=== PATIENT | male | born 1965 | race Caucasian/White ===

== ENCOUNTER 2017-12-01 09:28 | Inpatient (IN) | payer MEDICAID ==
[~2017-12-01 09:28] MED LIST: cefOXitin 2 GM Vial ONE
[2017-12-01] MEDS ORDERED: Celecoxib 200 MG Cap PO ONE (09:30)
[2017-12-01] MEDS ORDERED: Acetaminophen 500 MG Tab PO ONE (09:30)
[2017-12-01] MEDS ORDERED: Gabapentin 300 MG Cap PO ONE (09:30)
[2017-12-01] MEDS ORDERED: Scopolamine 1.5 MG Transdermal Patch TOP SCH (09:30)
[2017-12-01] MEDS ORDERED: Dextrose 5%-Lactated Ringers 1,000 ML IV SCH (10:30)
[2017-12-01] MEDS ORDERED: fentaNYL 250 MCG/5 ML SDV ONE (11:23)
[2017-12-01] MEDS ORDERED: Neostigmine Methylsulfate 1 MG/ML 5 ML Syringe ONE (11:24)
[2017-12-01] MEDS ORDERED: Succinylcholine 200 MG/10 ML MDV ONE (11:24)
[2017-12-01] MEDS ORDERED: Glycopyrrolate 0.2 MG/ML 5 ML MDV ONE (11:24)
[2017-12-01] MEDS ORDERED: Ondansetron 4 MG/2 ML SDV ONE (11:24)
[2017-12-01] MEDS ORDERED: Dexamethasone 4 MG/ML SDV ONE (11:24)
[2017-12-01] MEDS ORDERED: Rocuronium 50 MG/5 ML Vial ONE ×2 (11:24→14:36)
[2017-12-01] MEDS ORDERED: Propofol 200 MG/20 ML SDV ONE (11:24)
[2017-12-01] MEDS ORDERED: Lidocaine 2% 100 MG/5 ML Syringe IVPUSH ONE (12:00)
[2017-12-01] MEDS ORDERED: Ropivacaine 60 ML, Dexamethasone 8 MG, EPINEPHrine 0.4 MG, Sodium Chloride 0.9% 17.6 ML NERVRT SCH ×4 (12:00)
[2017-12-01] MEDS ORDERED: Ketamine 500 MG/5 ML MDV IV SCH (12:00)
[2017-12-01] MEDS ORDERED: cefOXitin 2 GM in Sodium Chloride 0.9% 50 ML IV ONE (12:30)
[2017-12-01] MEDS: Lidocaine 0.4%/D5W 2 GM/500 ML BAG IV SCH (16:00)
[2017-12-01] MEDS ORDERED: Labetalol 20 MG/4 ML Syringe ONE (16:38)
[2017-12-01] MEDS ORDERED: Labetalol 20 MG/4 ML Syringe IV PRN (16:38)
[2017-12-01] MEDS ORDERED: HYDROmorphone 0.5 MG/0.5 ML Syringe ONE ×2 (16:43→16:54)
[2017-12-01] MEDS ORDERED: HYDROmorphone 0.5 MG/0.5 ML Syringe IVPUSH ONE (16:45)
[2017-12-01] MEDS ORDERED: fentaNYL 100 MCG/2 ML SDV ONE (16:54)
[2017-12-01] MEDS ORDERED: fentaNYL 100 MCG/2 ML SDV IV ONE (16:55)
[2017-12-01] MEDS: Dextrose 5%-Lactated Ringers 1,000 ML IV SCH (17:00)
[2017-12-01] MEDS ORDERED: MVI, Adult with Vitamin K 10 ML, Thiamine 200 MG, Chromium/Copper/Mang/Selen/Zn 1 ML in... IV SCH ×8 (18:00)
[2017-12-01] MEDS ORDERED: Pantoprazole 40 MG Vial IVPUSH SCH (18:00)
[2017-12-01] MEDS ORDERED: Albuterol/Ipratropium 3.0-0.5 MG/3 ML Neb Soln INH PRN (18:00)
[2017-12-01] MEDS ORDERED: Ondansetron 4 MG/2 ML SDV IVPUSH PRN (18:00)
[2017-12-01] MEDS ORDERED: Metoclopramide 10 MG/2 ML SDV IVPUSH PRN (18:00)
[2017-12-01] MEDS ORDERED: hydrOXYzine HCl 100 MG/2 ML SDV IM PRN (18:00)
[2017-12-01] MEDS ORDERED: Labetalol 20 MG/4 ML Syringe IVPUSH PRN (18:00)
[2017-12-01] MEDS ORDERED: Insulin Aspart 100 Units/ML 3 ML Pen SUBCUT PRN (18:00)
[2017-12-01] MEDS ORDERED: diphenhydrAMINE 50 MG/ML SDV IVPUSH PRN (18:00)
[2017-12-01] MEDS: Heparin Sodium 5,000 Units/ML Vial SUBCUT SCH (18:04)
[2017-12-01] MEDS: Acetaminophen Soln 650 MG/20.3 ML UD Cup PO SCH (20:12)
[2017-12-01] MEDS: Gabapentin 250 MG/5 ML Solution ML 470 ML Bottle PO SCH (20:14)
[2017-12-01] MEDS: cefOXitin 2 GM in Sodium Chloride 0.9% 50 ML IV SCH (20:16)
[2017-12-02] MEDS: Dextrose 5%-Lactated Ringers 1,000 ML IV SCH ×2 (00:13→05:54)
[2017-12-02] MEDS: Acetaminophen Soln 650 MG/20.3 ML UD Cup PO SCH ×4 (01:13→21:01)
[2017-12-02] MEDS: cefOXitin 2 GM in Sodium Chloride 0.9% 50 ML IV SCH ×3 (01:14→13:40)
[2017-12-02] MEDS: Heparin Sodium 5,000 Units/ML Vial SUBCUT SCH ×3 (01:14→18:18)
[2017-12-02] MEDS ORDERED: Iohexol 647 MG/ML 50 ML SDV PO STA (04:00)
[2017-12-02] MEDS ORDERED: traMADol 50 MG Tab PO PRN (07:14)
[2017-12-02] MEDS: Celecoxib 200 MG Cap PO SCH (07:20)
[2017-12-02] MEDS: Citalopram 20 MG Tab PO SCH (07:59)
[2017-12-02] MEDS: Lisinopril 20 MG Tab PO SCH (08:00)
[2017-12-02] MEDS: amLODIPine 10 MG Tab PO SCH (08:01)
[2017-12-02] MEDS: Lidocaine 0.4%/D5W 2 GM/500 ML BAG IV SCH (08:03)
[2017-12-02] MEDS: Gabapentin 250 MG/5 ML Solution ML 470 ML Bottle PO SCH ×3 (08:10→21:00)
--- NOTE | 2017-12-02 09:05 | CR ---
Limited upper GI The patient is status post Darrion-en-Y gastric bypass. There are left upper quadrant drains in place. T here is no extravasation of contrast. The gastric pouch empties readily into a nondilated Darrion limb. No complications are evident. Impression: 1. Status post Darrion-en-Y gastric bypass without evidence for complication.
[2017-12-02] MEDS: SCOPOLAMINE PATCH CHECK TOP SCH (10:34)
[2017-12-02] MEDS: Magnesium Sulfate/Water 2 GM in Premix Bag 1 BAG IV SCH ×3 (10:39→21:01)
[2017-12-02] MEDS: Sodium Ferric Gluconate Cmplex 250 MG in Sodium Chloride 0.9% 100 ML IV SCH (11:35)
[2017-12-02] MEDS: Pantoprazole 40 MG Delayed-Release Granules 1 Packet PO SCH (15:33)
[2017-12-02] MEDS: MVI, Adult with Vitamin K 10 ML, Thiamine 200 MG, Chromium/Copper/Mang/Selen/Zn 1 ML in... IV SCH ×4 (15:34)
[2017-12-03] MEDS: Dextrose 5%-Lactated Ringers 1,000 ML IV SCH (01:35)
[2017-12-03] MEDS: Acetaminophen Soln 650 MG/20.3 ML UD Cup PO SCH ×4 (02:25→21:28)
[2017-12-03] MEDS: Heparin Sodium 5,000 Units/ML Vial SUBCUT SCH ×3 (02:26→17:50)
[2017-12-03] MEDS: Magnesium Sulfate/Water 2 GM in Premix Bag 1 BAG IV SCH ×4 (03:37→21:28)
[2017-12-03] MEDS: Citalopram 20 MG Tab PO SCH (08:33)
[2017-12-03] MEDS: Celecoxib 200 MG Cap PO SCH (08:33)
[2017-12-03] MEDS: amLODIPine 10 MG Tab PO SCH (08:34)
[2017-12-03] MEDS: Gabapentin 250 MG/5 ML Solution ML 470 ML Bottle PO SCH ×3 (08:34→21:27)
[2017-12-03] MEDS: Lisinopril 20 MG Tab PO SCH (08:34)
[2017-12-03] MEDS: SCOPOLAMINE PATCH CHECK TOP SCH (08:34)
[2017-12-03] MEDS ORDERED: Cyanocobalamin (Vitamin B12) 1,000 MCG/ML SDV IM ONE (09:00)
[2017-12-03] MEDS ORDERED: Magnesium Hydroxide 400 MG/5 ML Susp 30 ML Cup PO ONE (09:00)
[2017-12-03] MEDS ORDERED: Bisacodyl 5 MG Tab PO ONE (10:00)
[2017-12-03] MEDS: Sodium Ferric Gluconate Cmplex 250 MG in Sodium Chloride 0.9% 100 ML IV SCH (10:29)
--- NOTE | 2017-12-03 10:50 | PN ---
DATE OF SERVICE: 12/03/2017 SUBJECTIVE: Billy is on a BiPAP. His oximetry decreased to 85% without any O2. He was put on O2 of 5 L and his oxygen stayed in the low 90s. He was transferred up yesterday from ICU. His activity is good. Vital signs have been stable. Oral intake was 1070. REVIEW OF SYSTEMS: Remainder of review of systems negative for any pertinent positives and negatives. OBJECTIVE: GENERAL: Billy Renee is a 52-year-old male. He is alert and orientated. VITAL SIGNS: TPR 98.1, 73, 16. Blood pressure 144/76. HEENT: Negative. NECK: Supple. HEART: Regular rate and rhythm. LUNGS: Clear. ABDOMEN: Sutures intact. GARRISON drain intact. Abdominal binder has been on, it has been bothering him. EXTREMITIES: Without peripheral edema. ASSESSMENT: Laparoscopic Darrion-en-Y gastric bypass surgery, liver biopsy, repair of diaphragmatic hernia, excision of mediastinal lipoma and small bowel resection for morbid obesity, marked hepatomegaly, large paraesophageal hernia, enlarged mediastinal lipoma, extensive fatty infiltration, limited small bowel mobility. Date of surgery 12/01/2017. Surgeon, Parveen De Anda MD. PLAN: 1. Respiratory therapy consult. 2. Evaluate home O2. 3. Discontinue abdominal binder. 4. Milk of magnesia 30 mL now followed by Dulcolax 2 tablets. 5. Good pulmonary toilet. 6. We will evaluate p.r.n. or in a.m. 7. Plan discharge in a.m. if home O2 is able to be setup. Bridget Parks PA-C /[id number]
[2017-12-03] MEDS: MVI, Adult with Vitamin K 10 ML, Thiamine 200 MG, Chromium/Copper/Mang/Selen/Zn 1 ML in... IV SCH ×4 (15:35)
[2017-12-03] MEDS: Pantoprazole 40 MG Delayed-Release Granules 1 Packet PO SCH (15:36)
--- NOTE | 2017-12-03 17:28 | PN ---
DATE OF SERVICE: 12/02/2017 The patient has been afebrile with stable vital signs. He did tolerate the CPAP with mask, but does drop substantially his O2 sats either with CPAP or with the nasal cannula. Otherwise, currently he is doing well. Urine output has been satisfactory. Magnesium is somewhat low level and that will be supplemented. We will go up to step-2 diet today and he is alert and we will maximize his activity and work with pulmonary toilet. Parveen De Anda MD /[id number]
[2017-12-04] MEDS: Magnesium Sulfate/Water 2 GM in Premix Bag 1 BAG IV SCH ×2 (03:04→10:27)
[2017-12-04] MEDS: Acetaminophen Soln 650 MG/20.3 ML UD Cup PO SCH ×2 (03:04→07:23)
[2017-12-04] MEDS: Heparin Sodium 5,000 Units/ML Vial SUBCUT SCH (03:04)
[2017-12-04] MEDS: Dextrose 5%-Lactated Ringers 1,000 ML IV SCH (03:06)
[2017-12-04] MEDS: Celecoxib 200 MG Cap PO SCH (07:23)
[2017-12-04] MEDS: Lisinopril 20 MG Tab PO SCH (08:40)
[2017-12-04] MEDS: amLODIPine 10 MG Tab PO SCH (08:42)
[2017-12-04] MEDS: Gabapentin 250 MG/5 ML Solution ML 470 ML Bottle PO SCH (08:42)
[2017-12-04] MEDS: Citalopram 20 MG Tab PO SCH (08:43)
--- NOTE | 2017-12-04 09:11 | DISCH ---
ADMISSION DIAGNOSES: Morbid obesity, severe obstructive sleep apnea on BiPAP, anxiety, chronic back pain, depression, hypertension, generalized anxiety disorder, hyperlipidemia, hypothyroid, is on long-term opiate analgesic use, major depression, restless legs syndrome, type 2 diabetes without complications. DISCHARGE DIAGNOSES: Laparoscopic Darrion-en-Y gastric bypass surgery, liver biopsy, repair of diaphragmatic hernia, excision of mediastinal lipoma and small bowel resection for morbid obesity, marked hepatomegaly, large paraesophageal diaphragmatic hernia and large mediastinal lipoma, extensive fatty liver infiltration, limited small bowel mobility and date of surgery 12/01/2017. Surgeon, Parveen De Anda MD. HISTORY: Billy Renee is a 52-year-old male with longstanding history of morbid obesity and increasing comorbidities. After preoperative evaluation and discussion of possible risks and possible complications, he wished to proceed with surgical procedure. HOSPITAL COURSE: Billy had his surgery on 12/01/2017. He had no operative complications. He was on a BiPAP following surgery and to maintain his oxygen levels appropriately. On postoperative day 1, his upper GI was normal. He was started on a step-2 gastric bypass diet without cereal. His pain was well managed. His activity was good. On postoperative day 2, his oxygen levels without O2 would decrease to 85%. He was put on oxygen through his BiPAP and he was able to maintain in the low 90s with O2 at 5 L. He was evaluated for home oxygen. His vital signs remained stable. He received adequate dietary instruction and he was able to be discharged to home on 12/04/2017. PHYSICAL EXAMINATION: GENERAL: Billy Renee is a 52-year-old male. VITAL SIGNS: Height is 6 feet 1 inch. Weight is 397 pounds 11 ounces. TPR 97.7, 67, 16. Blood pressure 146/87. HEENT: Negative. NECK: Supple. HEART: Regular rate and rhythm. LUNGS: Clear. ABDOMEN: Dressings dry and intact. 4x4 over GARRISON drain site and abdominal binder currently is not on, but he has been wearing it. EXTREMITIES: Without peripheral edema. DISPOSITION: Discharged to home. CONDITION: Stable and improving. FOLLOWUP: Followup appointment with Bridget Parks PA-C on 12/11/2017 at 10:30 a.m. HOME MEDICATIONS: 1. Celebrex 200 mg p.o. daily #14. 2. Zofran ODT 4 mg q.6 hours p.r.n. nausea. He is to resume taking his home medications: 1. Celexa 40 mg daily. 2. Levothyroxine 150 mcg mg daily. 3. Lisinopril 40 mg daily. 4. Omeprazole 20 mg daily. 5. Amlodipine 10 mg daily. 6. Tramadol 50 mg b.i.d. DIET AFTER DISCHARGE: Drink 8 to 10 glasses of water a day. Step 2 gastric bypass diet with no cereal until Friday12/15/2017. ACTIVITY: No lifting greater than 10 pounds for 2 weeks. Other activity, walk 6 times daily, distance and time as tolerated. Driving, do not drive for 1 week. Shower/bathing, may shower. DISCHARGE INSTRUCTIONS: Notify provider if any fever, increased pain, nausea, vomiting, incision care, keep site clean and dry. Wear abdominal binder for 2 weeks and as tolerated. SPECIAL INSTRUCTIONS: 1. Use incentive spirometer 10 times every hour while awake. 2. Use oxygen with your BiPAP and then sleep on your side.
--- NOTE | 2017-12-05 08:06 | OR ---
DATE OF PROCEDURE: 12/01/2017 PREOPERATIVE DIAGNOSIS: Morbid obesity. POSTOPERATIVE DIAGNOSES: 1. Morbid obesity. 2. Marked hepatomegaly. 3. Large paraesophageal hernia with a large mediastinal lipoma. 4. Extensive fatty infiltration of small bowel mesentery limiting small bowel mobility. OPERATIVE PROCEDURES: 1. Laparoscopic Darrion-en-Y gastric bypass with long-limb gastroenterostomy (67297). 2. Guilherme-Cut needle liver biopsy (82818). 3. Repair of paraesophageal diaphragmatic hernia (72221). 4. Excision of mediastinal lipoma (90821). 5. Small bowel resection to facilitate mobility of jejunojejunostomy to allow tension-free gastrojejunostomy (34701). ANESTHESIA: General. FLIGHT ATTENDANT: Bridget Parks PA-C. INDICATIONS FOR PROCEDURE: This is a 52-year-old presenting with longstanding morbid obesity and increasingly severe comorbidities. After preoperative evaluation and discussion, he wished to proceed with a gastric bypass procedure. Potential risks of the procedure including bleeding, infection, leaks from various GI tract closures, problems with bowel obstruction over time, as well as the possibility of cardiopulmonary, septic, or hemorrhagic complications leading to were discussed, and the patient wishes to proceed. DETAILS OF PROCEDURE: The patient was taken to the operating room, and after general endotracheal anesthesia was induced, he was placed in the lithotomy position. An orogastric tube was placed, and the abdomen was prepped and draped. 15 cm inferior and 5 cm left of xiphoid process, a transverse incision was made, and the peritoneal cavity was entered under direct vision with an Optiview trocar and inflated to 15 mmHg pressure with CO2. Laparoscope was then reinserted. No underlying trocar insertion site injuries were seen. Following this, 5 additional trocars were placed across the upper and mid abdomen, and general exploration was undertaken. The patient was noted to have marked hepatomegaly with liver volume being roughly 2 to 3 times normal and grossly fatty infiltrated. Guilherme-Cut needle biopsies were obtained from the left lobe of the liver. Minimal bleeding from the biopsy sites was seen, and the bleeding was controlled with electrocautery. Bilateral transversus abdominis plane blocks were then placed using standard solution bilaterally and direct visualization of the needle in the correct plane. Following this, the omentum was divided in the midline at the level of the transverse colon. This allowed identification of the small bowel to the ligament of Treitz. Small bowel was then traced out 150 cm distal to that point, where it was divided transversely with the RUMA stapler. The small bowel mesentery was noted to be markedly thickened, making the small bowel poorly mobile, and given this, roughly 10 cm of the biliopancreatic limb was then resected. The mesentery was initially divided with a Harmonic scalpel and the limb of bowel was divided once again removing that segment of the biliopancreatic limb. This would allow a significantly improved mobility of the jejunojejunostomy to allow more of a tension-free anastomosis at the gastrojejunostomy. The small bowel was then traced out 150 cm distal to that point, where the [id number] enteroenterostomy was accomplished with internal firing of the Endo-RUMA 60-mm stapler. The common opening was then closed transversely with the same stapler, angles anastomosed, and mesenteric defect was approximated with some 0 Ethibond stitch along with fibrin sealant. The divided end of the Darrion limb was then from the mesentery for a few centimeters, which allowed an antecolic division of the Darrion limb up to the level of the gastroesophageal junction with minimal tension. The liver was then retracted anteriorly. The patient was noted to have a large paraesophageal diaphragmatic hernia. This included a significant amount of omentum prolapsing anterior to the course of the esophagus and stomach. As this was reduced, the patient was noted to have a quite large mediastinal lipoma. This was excised using Harmonic scalpel, and it was removed in a piecemeal fashion, given the large size of the lipoma. The peritoneum along the hernia was then incised and reflected downward, and an anterior repair of the diaphragmatic hernia was then accomplished with a series of 0 Ethibond sutures reinforced with PTFE pledgets. At this point, the gastrointestinal balloon catheter was then inflated to 15 mL and pulled up snugly against the EG junction. Gastric wall of the [place] balloon was then marked with electrocautery and balloon catheter deflated and pulled up from the esophagus. The lesser omental tissue adjacent to the gastric cardia was incised allowing dissection of the stomach adjacent to the cauterized ciara on the gastric cardia. Pouch formation was initiated with a transverse firing of the RUMA black load. The black load was used in this case due to the fairly thick nature of the stomach at that level. The remaining pouch was then constructed using purple loads, with the staple lines being retracted up toward the angle of His. Upon completion of the pouch, both staple lines were noted to be intact. The anvil of a 25-mm EEA stapler was then attached to the [place] sump type tube. The latter was brought down through the mouth and taken out through a small opening in the gastric pouch, allowing the anvil likewise to be placed into the gastric pouch. The divided end of the Darrion limb was then opened and the main body of the EEA stapler passed several centimeters into the lumen of small bowel, brought out the anvil and united with it, thus creating the gastrojejunostomy. Upon removal of the stapler, double donuts of mucosa were noted within it. The small bowel was closed off with a vascular staple line. Gastrojejunostomy was reinforced with some 3-0 Vicryl seromuscular stitch along with fibrin sealant. A leak test was accomplished with an injection of 120 mL of air in the gastric pouch while it was submerged with cefoxitin-containing saline solution. No leaks were identified. One Venkatesh-Farrell drain was then placed through the left lateral trocar site and positioned adjacent to the gastrojejunostomy, and from there up into the splenic fossa. There were no further problems noted. Trocars were removed, and the peritoneal cavity deflated. Incisions were closed with some 4-0 Vicryl skin stitch, which was also used to fix the drain, and a dressing was applied. The patient was taken to the recovery room in a satisfactory condition. There were no evident complications. Physician special event assistant, Bridget Parks, played an essential role in assisting in this case, helping to position the patient, retract structures as needed, as well as suturing and cutting sutures when indicated. Her presence improved patient safety and decreased the operative time. Parveen De Anda MD /[id number]
== END 2017-12-04 12:30 | disposition home or self-care (01) | DRG 621 ==
LOC: JP.SDS 09:28 → JP.ICU 17:25 → JP.2SS 12-02 14:20
PROVIDERS: ADMIT Surgery; ATTEND Surgery
PROC: 0D164ZA Bypass Stomach to Jejunum, Percutaneous Endoscopic Approach (ICD-10-PCS; principal; 2017-12-01)
PROC: 0FB24ZX Excision of Left Lobe Liver, Percutaneous Endoscopic Approach, Diagnostic (ICD-10-PCS; 2017-12-01)
PROC: 0BQT4ZZ Repair Diaphragm, Percutaneous Endoscopic Approach (ICD-10-PCS; 2017-12-01)
PROC: 0DB84ZZ Excision of Small Intestine, Percutaneous Endoscopic Approach (ICD-10-PCS; 2017-12-01)
DX: E66.01 Morbid (severe) obesity due to excess calories (principal); Z68.43 Body mass index [BMI] 50.0-59.9, adult; D17.4 Benign lipomatous neoplasm of intrathoracic organs; R16.0 Hepatomegaly, not elsewhere classified; K44.9 Diaphragmatic hernia without obstruction or gangrene; K76.0 Fatty (change of) liver, not elsewhere classified; K59.8 Other specified functional intestinal disorders; I10 Essential (primary) hypertension; E78.5 Hyperlipidemia, unspecified; E11.9 Type 2 diabetes mellitus without complications; G47.33 Obstructive sleep apnea (adult) (pediatric); Z99.89 Dependence on other enabling machines and devices; F32.9 Major depressive disorder, single episode, unspecified; Z79.84 Long term (current) use of oral hypoglycemic drugs; F41.1 Generalized anxiety disorder; E03.9 Hypothyroidism, unspecified; G25.81 Restless legs syndrome; M54.9 Dorsalgia, unspecified; G89.29 Other chronic pain; Z79.891 Long term (current) use of opiate analgesic; Z87.891 Personal history of nicotine dependence; E83.42 Hypomagnesemia; E61.1 Iron deficiency
CPT/HCPCS: 36415; 74240; 74240-26; 80048; 80053; 82962; 83036; 83735; 83880; 84075; 84100; 84443; 85027; 86850; 86900; 86901; 94660; 94762; A9270-GY; C9113; J0171; J0330; J0694; J1100; J1170; J1644; J2001; J2405; J2704; J2710; J2795; J2916; J3010; J3411; J3420; J3475; J3490; J7030; J7042; J7050; Q9967